=== PATIENT | male | born 1995 | race Caucasian/White ===

== ENCOUNTER 2020-09-08 09:11 | Emergency (ER) | payer OTHER, SELFPAY ==
--- NOTE | ~2020-09-08 | XR_ITS ---
XR lumbar spine 2-3V 09/08/2020 09:54 Indication: Low back pain for 2-3 year Procedure: 3 views lumbar spine Comparison: No prior studies for comparison. Findings: Vertebral body and disc heights are preserved. No fracture or traumatic malalignment. Pedic les intact. Sacral foramen are symmetric. No evidence for spondylolisthesis. Impression: 1: No significant abnormality of the lumbar spine. Reviewed, dictated and finalized at location A. [facility] Impression: 1: No significant abnormality of the lumbar spine.
[2020-09-08 09:19] VITALS: BP 152/82; PULSE 80; RESP 16; TEMP 36.7; O2SAT 100
--- NOTE | 2020-09-08 09:43 | ED.BACK ---
HPI - Back Pain/Injury General Chief Complaint: Back Pain/Injury Stated Complaint: lower back pain Time Seen by Provider: 09/08/20 09:40 Source: patient Mode of arrival: ambulatory Limitations: no limitations History of Present Illness HPI Narrative: Manuel Gomez is a 25 yo male with no PMH who comes to express care with complaints of midline lower back pain. 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 Patient states he has had back pain on and off. Last x-ray was 2 years ago he states that certain activities seem to aggravate his lower back. Patient is obese, states he is quit drinking 8 months ago Related Data Allergies Allergy/AdvReac Type Severity Reaction Status Date / Time No Known Allergies Allergy Verified 09/08/20 09:28 Review of Systems Review of Systems: Narrative: CONSTITUTIONAL: Denies fever, chills, sweats. EYES: Denies visual changes, redness, discharge. ENT: Denies rhinorrhea, congestion, sore throat, otalgia. CARDIOVASCULAR: Denies chest pain, palpitations, edema. RESPIRATORY: Denies dyspnea, wheezing, cough GASTROINTESTINAL: Denies abdominal pain, nausea, vomiting, diarrhea. GENITOURINARY: Denies dysuria, hematuria, abnormal discharge SKIN: Denies rash or itching. NEUROLOGIC: Denies numbness, or focal weakness. PSYCHIATRIC: Denies anxiety or depression. Midline lower back pain PMFSH Past Medical History Medical History Back pain Family History Family History (Updated 09/08/20 @ 09:45 by Vania Almeida CNP) Other No acute medical problems Social History Social History (Updated 09/08/20 @ 09:46 by Vania Almeida CNP) Smoking status: Never smoker Alcohol intake: former Alcohol use details: Quit drinking 8 months ago Comments At time of signature, I agree with nursing past medical, surgical, social and family history. There is no relevant family history pertinent to the presenting complaint. BP is elevated today- may be due to pain- will be referred for primary care Exam Narrative: Exam Narrative: GENERAL: This is a well-nourished, well-developed patient, in mild distress. HEAD: normocephalic, atraumatic. EYES: Sclera clear/white. Vision is grossly intact. EARS: External ears normal, Hearing grossly intact. NOSE: External nose normal without nasal discharge, nares without redness, no rhinorrhea. THROAT: Mucous membranes moist, NECK: Neck supple, non-tender CARDIOVASCULAR: Regular rate and rhythm without murmurs, gallops, or rubs. RESPIRATORY: Clear to auscultation. Breath sounds equal bilaterally. No wheezes, rales, or rhonchi. GASTROINTESTINAL: Abdomen soft, no SKIN: warm, intact with no suspicious lesions or rash, good texture and turgor. NEURO: awake, alert, and oriented to person, place and time. There were no obvious focal neurologic abnormalities. Steady gait EXTREMITIES: Normal range of motion. BACK: Mild tender without deformity; no pain when bending forward although cannot touch toes; states feels pulling turns to the left Course Course Emergency Course: X-ray of the lower lumbar done- results:no bony abnormalities Patient started on baclofen and Medrol taper Vital Signs Vital signs: Vital Signs Temperature 98.1 F 09/08/20 09:19 Pulse Rate 80 09/08/20 09:19 Respiratory Rate 16 09/08/20 09:19 Blood Pressure 152/82 H 09/08/20 09:19 Pulse Oximetry 100 09/08/20 09:19 Temperature 98.1 F 09/08/20 09:19 Pulse Rate 80 09/08/20 09:19 Respiratory Rate 16 09/08/20 09:19 Blood Pressure 152/82 H 09/08/20 09:19 Pulse Oximetry 100 09/08/20 09:19 MDM - Back Pain/Injury Differential Diagnosis Differential diagnosis: Likely lumbar radiculopathy, sciatica, discitis and other Discharge Plan Discharge Clinical Impression: Strain of lumbar region Qualifiers: Encounter type: initial encounter Qualified Code(s): S39.012A - Strain
== END 2020-09-08 10:19 | disposition home or self-care (01) ==
PROVIDERS: Emergency Provider Nurse Practitioner
DX: S39.012A Strain of muscle, fascia and tendon of lower back, initial encounter (principal); X58.XXXA Exposure to other specified factors, initial encounter
CPT/HCPCS: 72100; 99203; G0463

== ENCOUNTER 2023-06-27 18:39 | Emergency (ER) | payer BC, MEDICAID, SELFPAY ==
[2023-06-27 18:51] VITALS: BP 185/102; PULSE 67; RESP 16; TEMP 36.8; O2SAT 100
--- NOTE | 2023-06-27 19:06 | ED.GENADULT ---
HPI - General Adult General Chief complaint: Unspecified Stated complaint: need a work note Source: patient Mode of arrival: ambulatory Limitations: no limitations History of Present Illness HPI narrative: 28-year-old male presents to [facility] requesting work excuse return back to work on Thursday June 29, 2023. Patient reports that he has a large amount of situational stress in his life as he recently came a single parent and has had long history of intermittent depression. Patient reports that he does not have a sitter for his child and is unable to work tomorrow. Patient reports that he does have a primary care provider but has not discussed depression and anxiety with them. Patient denies suicidal or homicidal ideations at this time. Relieving factors: none Exacerbating factors: none Associated symptoms: denies other symptoms Treatments prior to arrival: none Related Data Allergies Allergy/AdvReac Type Severity Reaction Status Date / Time No Known Allergies Allergy Verified 09/08/20 09:28 Review of Systems Constitutional: Constitutional: Denies chills, Denies fatigue, Denies fever(s) and Denies weakness ENT: Denies vertigo, Denies dizziness and Denies epistaxis Cardiovascular: Cardiovascular: Denies chest pain Respiratory: Respiratory: Denies chest congestion, Denies cough and Denies dyspnea Gastrointestinal: Gastrointestinal: Denies diarrhea, Denies nausea and Denies vomiting Integumentary/Breasts: Skin/Breast: Denies erythema, Denies rash and Denies skin ulcer Neurologic: Denies dizziness, Denies syncope and Denies headache(s) Psychiatric: Psychiatric: Denies anxiety, Reports depression, Denies homicidal ideation and Denies suicidal ideation Endocrine: Endocrine: Denies fatigue, Denies polydipsia and Denies polyuria Allergic/Immunologic: Allergic/Immunologic: Denies throat swelling, Denies tongue swelling and Denies wheezing PMFSH Past Medical History Medical History Back pain Family History Family History Other No acute medical problems Social History Social History Smoking status: Never smoker Alcohol intake: former Alcohol use details: Quit drinking 8 months ago Comments At time of signature, I agree with nursing past medical, surgical, social and family history. There is no relevant family history pertinent to the presenting complaint. Exam Const: General: healthy appearing and no acute distress Nutritional Appearance: well nourished Orientation/consciousness: patient oriented x3 Limitations: no limitations Neck: Neck: normal visual inspection Resp: Effort & Inspection: normal respiratory effort and not labored Auscultation: clear to auscultation bilaterally, no crackles, no rales and no rhonchi Cardio: Rate: regular rate Rhythm: regular rhythm Heart sounds: no murmurs Skin: General skin exam: normal color Neuro: General: patient oriented x3 Psych: Mental Status: mental status grossly normal Affect: normal affect Attitude: cooperative Course Course Level of Care: Express Care Visit Vital Signs Vital signs: Vital Signs Temperature 36.8 C 06/27/23 18:51 Pulse Rate 67 06/27/23 18:51 Respiratory Rate 16 06/27/23 18:51 Blood Pressure 185/102 H 06/27/23 18:51 Pulse Oximetry 100 06/27/23 18:51 Oxygen Delivery Room Air 06/27/23 18:51 Temperature 36.8 C 06/27/23 18:51 Pulse Rate 67 06/27/23 18:51 Respiratory Rate 16 06/27/23 18:51 Blood Pressure 185/102 H 06/27/23 18:51 Pulse Oximetry 100 06/27/23 18:51 Oxygen Delivery Room Air 06/27/23 18:51 Medical Decision Making MDM Narrative Medical decision making narrative: Encouraged patient to follow-up with primary care provider to have blood pressure evaluated as well as to discuss intermittent depression
[2023-06-27 19:17] VITALS: BP 160/96
== END 2023-06-27 19:18 | disposition home or self-care (01) ==
PROVIDERS: Emergency Provider Nurse Practitioner Family
DX: Z02.79 Encounter for issue of other medical certificate (principal)
CPT/HCPCS: 99211; G0463

== ENCOUNTER 2023-07-06 17:35 | Emergency (ER) | payer BC, MEDICAID, SELFPAY ==
--- NOTE | 2023-07-06 17:44 | ED.GENADULT ---
HPI - General Adult General Chief complaint: Unspecified Stated complaint: check up to return to work History of Present Illness HPI narrative: IT, AND THAT PATIENT PRESENTS REQUESTING A RETURN TO WORK NOTE. PATIENT HAS BEEN OUT OF WORK AND MISSED WORK SINCE 2022. PATIENT HAS NOT FOLLOWED UP WITH HIS PRIMARY CARE PROVIDER BUT STATES HE HAS AN APPOINTMENT August WITH HIS PRIMARY CARE PROVIDER. PATIENT DENIES ANY ILLNESS NO PAIN NO DISCOMFORT. PATIENT IS JUST REQUESTING A RETURN TO WORK NOTE. Related Data Allergies Allergy/AdvReac Type Severity Reaction Status Date / Time No Known Allergies Allergy Verified 09/08/20 09:28 Review of Systems Review of Systems: CONSTITUTIONAL: DENIES FEVER, CHILLS, OR SWEATS. EYES: DENIES VISUAL CHANGES, REDNESS, OR DISCHARGE. ENT: DENIES RHINORRHEA, CONGESTION, SORE THROAT, OR OTALGIA. CARDIOVASCULAR: DENIES CHEST PAIN, PALPITATIONS, OR EDEMA. RESPIRATORY: DENIES COUGH OR DYSPNEA. GASTROINTESTINAL: DENIES ABDOMINAL PAIN, NAUSEA, VOMITING, OR DIARRHEA. GENITOURINARY: DENIES DYSURIA OR HEMATURIA. SKIN: DENIES RASH OR ITCHING. MUSCULOSKELETAL: DENIES BACK PAIN, JOINT PAIN, OR MYALGIA. NEUROLOGIC: DENIES HEADACHE, NUMBNESS, OR WEAKNESS. PSYCHIATRIC: DENIES ANXIETY OR DEPRESSION. PMFSH Past Medical History Medical History Back pain Family History Family History Other No acute medical problems Social History Social History Smoking status: Never smoker Alcohol intake: former Alcohol use details: Quit drinking 8 months ago Comments AT TIME OF SIGNATURE, AGREE WITH NURSING PAST MEDICAL, SURGICAL, SOCIAL AND FAMILY HISTORY. 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 PATIENT HAS NO DESIRE TO HARM HIMSELF OR ORTHERS AND HAS NO SUICIDE IDEATIONS Exam Narrative: GENERAL: WELL-APPEARING, WELL-NOURISHED, AND IN NO ACUTE DISTRESS. HEAD: NORMOCEPHALIC, ATRAUMATIC. EYES: PERRLA AND EOMI. ENT: NARES CLEAR, NO RHINORRHEA OR EPISTAXIS. MUCOUS MEMBRANES MOIST. NECK: SUPPLE. CHEST: CLEAR TO AUSCULTATION. NO RESPIRATORY DISTRESS. HEART: REGULAR RATE AND RHYTHM. NO MURMUR HEARD. NORMAL PERIPHERAL PULSES. ABDOMEN: SOFT, NONTENDER, NONDISTENDED, NORMAL ACTIVE BOWEL SOUNDS. EXTREMITIES: NORMAL RANGE OF MOTION. NO EDEMA. SKIN: WARM, DRY, NO RASH. NEURO: NO FOCAL DEFICITS. ALERT AND ORIENTED X3. KAREN COMA SCALE EYE OPENING: SPONTANEOUS 4 KAREN COMA SCALE MOTOR: OBEYS COMMANDS 6 KAREN COMA SCALE VERBAL: ORIENTED 5 KAREN COMA SCALE TOTAL 15 Course Course Level of Care: Express Care Visit Discharge Plan Discharge Clinical Impression: Encounter to obtain excuse from work Patient Disposition: Home, Self-Care Condition: Stable Additional Instructions: KEEP APPOINTMENT WITH PRIMARY CARE PROVIDER PLANNED IF ANY NEW OR WORSENING OF SYMPTOMS GO TO ER IMMEIDIATELY Follow-up/Referrals: Joe,Harish Thomas MD [Primary Care Provider] - Stand Alone Forms: Work/School Release IP
[2023-07-06 17:46] VITALS: BP 144/89; PULSE 85; RESP 16; TEMP 36.5; O2SAT 100
== END 2023-07-06 17:53 | disposition home or self-care (01) ==
PROVIDERS: Emergency Provider Nurse Practitioner Family; PCP Family Medicine
DX: Z02.79 Encounter for issue of other medical certificate (principal)
CPT/HCPCS: 99211; G0463